=== PATIENT | female | born 1990 ===

== ENCOUNTER 2018-03-16 03:02 | Emergency (ER) | payer OTHER, SELFPAY ==
--- NOTE | 2018-03-16 07:46 | RAD ---
CHEST 2 VIEWS: Date: 03/16/18 HISTORY: Cough. COMPARISON: None. FINDINGS: Normal cardiac silhouette. Lungs and pleural spaces are clear. No pneumothorax or osseous abnormaliti es. IMPRESSION: No acute cardiopulmonary process. POS: [facility]
== END 2018-03-16 04:33 | disposition home or self-care (01) ==
LOC: ERS 03:02
DX: S39.011A Strain of muscle, fascia and tendon of abdomen, initial encounter (principal); J20.9 Acute bronchitis, unspecified; X58.XXXA Exposure to other specified factors, initial encounter
CPT/HCPCS: 71046